=== PATIENT | male | born 1985 | race Hispanic/Latino ===

== ENCOUNTER 2017-07-24 12:09 | Emergency (ER) | payer SELFPAY ==
[2017-07-24] MEDS ORDERED: Adacel (T-DAP) 0.5 ML VIAL ONE (13:52)
[2017-07-24] MEDS ORDERED: Ibuprofen 800 MG TAB ONE (13:52)
== END 2017-07-24 14:11 | disposition home or self-care (01) ==
LOC: SCSER 12:09
DX: S61.412A Laceration without foreign body of left hand, initial encounter (principal); E11.9 Type 2 diabetes mellitus without complications; W26.0XXA Contact with knife, initial encounter; Y99.0 Civilian activity done for income or pay
CPT/HCPCS: 12002; 90471; 90715

== ENCOUNTER 2020-02-29 15:19 | Outpatient (CLI) | payer OTHER ==
--- NOTE | 2020-02-29 15:49 | ULT ---
THYROID ULTRASOUND INDICATION: Palpable abnormality of the thyroid gland TECHNIQUE: Grayscale and color Doppler images were obtained of the thyroid gland. COMPARISON: None FINDINGS: Right thyroid lobe: The right thyroid lobe measures 4.8 x 1.5 x 1.7 cm. Thyroid isthmus: The thyroid isthmus measures 0.3 cm. Left thyroid lobe: The left thyroid lobe measures 4.6 x 1.5 x 1.8 cm. IMPRESSION: 1. No focal thyroid lesion demonstrated.
== END 2020-02-29 15:20 | disposition home or self-care (01) ==
LOC: BICULT 15:19
PROVIDERS: ATTEND Internal Medicine Endocrinology, Diabetes & Metabolism
DX: E04.1 Nontoxic single thyroid nodule (principal)
CPT/HCPCS: 76536

== ENCOUNTER 2022-09-25 10:37 | Outpatient (CLI) | payer BC | END 2022-09-25 10:38 | disposition home or self-care (01) | LOC: SCSRAD 10:37 | PROVIDERS: ATTEND Family Medicine | DX: M25.551 Pain in right hip (principal) ==

== ENCOUNTER 2024-02-17 11:08 | Outpatient (CLI) | payer OTHER | END 2024-02-17 11:09 | disposition home or self-care (01) | LOC: SCSRAD 11:08 | PROVIDERS: ATTEND Family Medicine | DX: R06.02 Shortness of breath (principal) | CPT/HCPCS: 71046 ==